=== PATIENT | female | born 1990 | race Caucasian/White ===

== ENCOUNTER 2017-03-25 10:24 | Emergency (ER) | payer OTHER ==
[~2017-03-25] VITALS: Ht 157.5 cm; Wt 53.5 kg
[2017-03-25 10:27] VITALS: BP 120/73; PULSE 74; RESP 12; TEMP 98.5; O2SAT 100
--- NOTE | 2017-03-25 10:51 | PD ---
HPI Chief Complaint: Flank/Kidney Pain Time Seen by Provider: 10:34 Travel History International Travel<30 days: No Contact w/Intl Traveler<30days: No Traveled to known affect area: No History of Present Illness HPI 26-year-old female complains of left flank pain overnight. Radiates to the left groin. Initially it was a dull mild pain it became much more severe. Outside facility revealed no UTI and she was referred here. No fever or vomiting. She denies hematuria. Severity moderate. PFSH Past Medical History Medical History: Denies Significant Hx Diminished Hearing: No Tetanus Vaccination: Unknown Influenza Vaccination: No ?: Not LMP: 03/17/17 Past Surgical History Surgical History: No Previous Surgery Social History Alcohol Use: No Tobacco Use: No Substance Use: No Allergies-Medications (Allergen,Severity, Reaction): Coded Allergies: No Known Allergies (Verified Allergy, Unknown, 03/25/17) Reported Meds & Prescriptions Reported Meds & Active Scripts Active No Active Prescriptions or Reported Medications Review of Systems Except as stated in HPI: all other systems reviewed are Neg Physical Exam Narrative GENERAL: 26-year-old female pleasant well-nourished well-developed Vital Signs Date Time Temp Pulse Resp B/P (MAP) Pulse Ox O2 Delivery O2 Flow Rate FiO2 03/25/17 10:27 98.5 74 12 120/73 (89) 100 SKIN: Warm and dry. HEAD: Atraumatic. Normocephalic. EYES: Pupils equal and round. No scleral icterus. No injection or drainage. ENT: No nasal bleeding or discharge. Mucous membranes pink and moist. NECK: Trachea midline. No JVD. CARDIOVASCULAR: Regular rate and rhythm. RESPIRATORY: No accessory muscle use. Clear to auscultation. Breath sounds equal bilaterally. GASTROINTESTINAL: Minimal tenderness to percussion along the left flank. Abdomen soft and nontender. MUSCULOSKELETAL: Extremities without clubbing, cyanosis, or edema. No obvious deformities. NEUROLOGICAL: Awake and alert. No obvious cranial nerve deficits. Motor grossly within normal limits. Five out of 5 muscle strength in the arms and legs. Normal speech. PSYCHIATRIC: Appropriate mood and affect; insight and judgment normal. Data Data Last Documented VS Vital Signs Date Time Temp Pulse Resp B/P (MAP) Pulse Ox O2 Delivery O2 Flow Rate FiO2 03/25/17 10:27 98.5 74 12 120/73 (89) 100 Orders Orders Basic Metabolic Panel (Bmp) (03/25/17 10:47) Complete Blood Count With Diff (03/25/17 10:47) Urinalysis - C+S If Indicated (03/25/17 10:47) Ct Abd/Pel W/O Iv Contrast (03/25/17 10:47) Iv Access Insert/Monitor (03/25/17 10:47) Ecg Monitoring (03/25/17 10:47) Oximetry (03/25/17 10:47) Sodium Chloride 0.9% Flush (Ns Flush) (03/25/17 11:00) Ketorolac Inj (Toradol Inj) (03/25/17 11:00) Ed Urine Pregnancytest Poc (03/25/17 10:47) Labs Laboratory Tests Test 03/25/17 10:55 03/25/17 11:00 White Blood Count 7.2 TH/MM3 Red Blood Count 5.06 MIL/MM3 Hemoglobin 12.9 GM/DL Hematocrit 40.5 % Mean Corpuscular Volume 80.2 FL Mean Corpuscular Hemoglobin 25.6 PG Mean Corpuscular Hemoglobin Concent 31.9 % Red Cell Distribution Width 15.8 % Platelet Count 246 TH/MM3 Mean Platelet Volume 9.2 FL Neutrophils (%) (Auto) 58.8 % Lymphocytes (%) (Auto) 31.0 % Monocytes (%) (Auto) 8.4 % Eosinophils (%) (Auto) 1.1 % Basophils (%) (Auto) 0.7 % Neutrophils # (Auto) 4.3 TH/MM3 Lymphocytes # (Auto) 2.2 TH/MM3 Monocytes # (Auto) 0.6 TH/MM3 Eosinophils # (Auto) 0.1 TH/MM3 Basophils # (Auto) 0.0 TH/MM3 CBC Comment DIFF FINAL Differential Comment Blood Urea Nitrogen 9 MG/DL Creatinine 0.75 MG/DL Random Glucose 85 MG/DL Calcium Level 9.1 MG/DL Sodium Level 138 MEQ/L Potassium Level 4.4 MEQ/L Chloride Level 108 MEQ/L Carbon Dioxide Level 22.0 MEQ/L Anion Gap 8 MEQ/L Estimat Glomerular Filtration Rate 95 ML/MIN MDM Medical Decision Making Medical Screen Exam Complete: Yes Emergency Medical Condition: Yes Medical Record Reviewed: Yes Differential Diagnosis Constipation, Gastritis, Acute Cholecystitis, Biliary Colic, Pancreatitis, FIELD , Hepatitis, Bowel Obstruction, Cystitis, Mesenteric Ischemia, AAA, Appendicitis , Renal Stone/Hydronephrosis, GERD, perforated viscous Narrative Course CBC & BMP Diagram 03/25/17 10:55 Calcium Level 9.1 Urine is negative Urinalysis shows no UTI CT of pelvis shows free fluid in the pelvis with some thickening of the uterus of unknown etiology The patient is resting comfortably and feels better, is alert and in no distress. The patients results and examination findings were discussed. The repeat examination is unremarkable and benign. The history, exam, diagnostic testing, and current condition do not suggest any significant pathology to warrant further testing, continued ED treatment, admission, or surgical evaluation at this point. The vital signs have been stable. The patient does not have uncontrollable pain, intractable vomiting, or other significant symptoms. The patient's condition is stable and appropriate for discharge. The patient will pursue further outpatient evaluation with a primary care physician or other designated or consulting physician as indicated in the discharge instructions. The patient expressed understanding and was agreeable with this plan. Diagnosis Primary Impression: Ruptured ovarian cyst Referrals: Primary Care Physician 2 days Med/Other Pt SpecificInfo: Prescription(s) given Scripts No Active Prescriptions or Reported Meds Disposition: 01 DISCHARGE HOME Condition: Stable Dann Kate MD Mar 25, 2017 10:51
[2017-03-25] MEDS ORDERED: KETOROLAC TROMETHAMINE 30 MG/ML (IVP) VIAL IVP ONE (11:00)
[2017-03-25] MEDS ORDERED: SODIUM CHLORIDE 0.9% FLUSH 10 ML FLUSH IV FLUSH PRN (11:00)
[2017-03-25 11:18] LABS: AUTOMATED NEUTROPHIL # 4.3 TH/MM3 (1.8-7.7); BASOPHIL % 0.7 % (0.0-2.0); EOSINOPHIL # 0.1 TH/MM3 (0-0.4); EOSINOPHIL % 1.1 % (0.0-4.0); HEMATOCRIT 40.5 % (35.0-46.0); HEMOGLOBIN 12.9 GM/DL (11.6-15.3); LYMPHOCYTE # 2.2 TH/MM3 (1.0-4.8); MEAN CELL VOLUME 80.2 FL (80.0-100.0); MEAN CORPUSCULAR HEMOGLOBIN 25.6 PG (27.0-34.0); MEAN CORPUSCULAR HGB CONC 31.9 % (32.0-36.0); MEAN PLATELET VOLUME 9.2 FL (7.0-11.0); MONO % 8.4 % (0.0-8.0); MONOCYTE # 0.6 TH/MM3 (0-0.9); NEUT % 58.8 % (16.0-70.0); PLATELET COUNT 246 TH/MM3 (150-450); RED BLOOD COUNT 5.06 MIL/MM3 (4.00-5.30); RED CELL DISTRIBUTION WIDTH 15.8 % (11.6-17.2); WHITE BLOOD COUNT 7.2 TH/MM3 (4.0-11.0)
--- NOTE | 2017-03-25 11:37 | RADRPT ---
EXAM DATE/TIME: 03/25/2017 11:20 [facility] COMPARISON: No previous studies available for comparison. INDICATIONS : Left flank pain today. ORAL CONTRAST: No oral contrast ingested. RADIATION DOSE: 6.97 CTDIvol (mGy) MEDICAL HISTORY : None SURGICAL HISTORY : None. ENCOUNTER: Initial ACUITY: 1 day PAIN SCALE: 8/10 LOCATION: Left flank TECHNIQUE: Renal colic protocol. Volumetric scanning of the abdomen and pelvis was performed. Using automated exposure control and adjustment of the mA and/or kV according to patient size, radiation dose was kep t as low as reasonably achievable to obtain optimal diagnostic quality images. DICOM format image da ta is available electronically for review and comparison. FINDINGS: Right side: No calcified stones. No evidence of hydronephrosis. No calcifications along the course of the right ureter. Left side: No evidence hydronephrosis. No calcifications in the collecting system or along the course of the le ft ureter. Bladder: Nondistended. No calcifications within the lumen. Other: Retroverted uterus. A few calcified phleboliths seen on the right side. Moderate amount of free flu id in the dependent pelvis measuring up to 1.2 cm. No dilated loops of small and large bowel. No ca lcified gallstones. CONCLUSION: 1. No calcified renal stones or hydronephrosis. 2. Moderate amount of free fluid in the cul-de-sac. Retroverted uterus. Sarabjit Andre MD on March 25, 2017 at 11:32 Board Certified Radiologist. This report was verified electronically.
[2017-03-25 11:40] LABS: CALCIUM 9.1 MG/DL (8.5-10.1); CREATININE 0.75 MG/DL (0.50-1.00)
[2017-03-25 11:47] LABS: BACTERIA, URINE RARE /hpf; BILIRUBIN, URINE NEG (NEG); BLOOD, URINE NEG (NEG); GLUCOSE,URINE NEG (NEG); KETONE, URINE NEG (NEG); MUCUS URINE FEW /lpf (OCC); NITRITE,URINE NEG (NEG); SQUAMOUS EPITHELIAL CELL URINE 1 /hpf (0-5); TRANSITIONAL EPI CELLS, URINE <1 /hpf; URINE COLOR YELLOW (YELLW/STRAW); URINE LEUKOCYTE ESTERASE NEG (NEG)
[2017-03-25 11:51] VITALS: BP 110/61
== END 2017-03-25 11:59 | disposition home or self-care (01) ==
LOC: NEPC 10:24
DX: N83.209 Unspecified ovarian cyst, unspecified side (principal)
CPT/HCPCS: 74176; 80048; 81001; 84703; 85025; 96374; 99284; J1885

== ENCOUNTER 2017-12-12 17:01 | Inpatient (IN) ==
[2017-12-12] MEDS ORDERED: Naloxone Inj 0.4 MG/ML Vial IV.PUSH PRN (18:22)
[2017-12-12] MEDS ORDERED: fentaNYL Citrate Inj 100 MCG/2 ML Ampul IV.PUSH PRN (18:22)
[2017-12-12] MEDS ORDERED: Sodium Chlor 0.9% Inj 500 ML IV.SIG PRN (18:22)
[2017-12-12] MEDS ORDERED: Oxytocin 30 Units/500ml Premix 30 UNITS/500 ML BAG IV.SIG ONE (18:22)
[2017-12-12] MEDS ORDERED: Sod Chloride 0.9% Inj 1,000 ML IV.CONT PRN (18:22)
[2017-12-12] MEDS ORDERED: Citric Acid/Sodium Citrate Liq 30 ML UDC PO SCH (18:30)
[2017-12-12 18:48] LABS: Baso % (Auto) 0.4 % (0.0-2.0); Eos % (Auto) 0.1 % (0.0-4.0); Hematocrit 31.8 % (35.0-46.0); Hemoglobin 9.9 gm/dL (11.6-15.3); Lymph # (Auto) 1.6 th/mm3 (1.0-4.8); Lymph % (Auto) 15.2 % (9.0-44.0); Mean Corpuscular Hemoglobin 22.7 pg (27.0-34.0); Mean Corpuscular Volume 73.3 fL (80.0-100.0); Mean Platelet Volume 10.8 fL (7.0-11.0); Mono # (Auto) 0.7 th/mm3 (0.0-0.9); Mono % (Auto) 6.4 % (0.0-8.0); Neut % (Auto) 77.9 % (16.0-70.0); Platelet Count 171 th/mm3 (150-450); Red Blood Count 4.34 mil/mm3 (4.00-5.30); Red Cell Distribution Width 21.8 % (11.6-17.2); White Blood Count 10.3 th/mm3 (4.0-11.0)
[2017-12-12 18:50] LABS: Bacteria,Urine Few /hpf; Bilirubin,Urine Negative (Negative); Clarity,Urine Clear (Clear); Color,Urine Straw (Yellw/Straw); Glucose,Urine (UA) Negative (Negative); Leukocyte Esterase,Urine Negative (Negative); Mucus,Urine Few /lpf (Occasional); Nitrite,Urine Negative (Negative); Specific Gravity,Urine 1.003 (1.002-1.035); Squamous Epithelial Cell,Urine 2 /hpf (0-5)
[2017-12-12 18:56] LABS: Amphetamine Urine With Conf Neg (Neg); Benzodiazepine Urine With Conf Neg (Neg)
[2017-12-12] MEDS ORDERED: Penicillin G Potassium Inj 5,000,000 UNIT in Sodium Chloride 0.9% Inj 100 ML IV.SIG ONE (20:00)
[2017-12-12] MEDS ORDERED: Zolpidem Tartrate 5 MG Tablet PO PRN (21:00)
[2017-12-12] MEDS: fentaNYL Citrate Inj 100 MCG/2 ML Ampul IV.PUSH PRN (23:25)
[2017-12-12] MEDS ORDERED: fentaNYL 2MCG-Bupiv 0.125% Epi 150 ML EPIDURAL ONE (23:54)
[2017-12-13] MEDS: fentaNYL Citrate Inj 100 MCG/2 ML Ampul IV.PUSH PRN (00:05)
[2017-12-13] MEDS ORDERED: Bupivacaine PF 0.25% Inj 10 ML Vial ONE (00:30)
[2017-12-13] MEDS ORDERED: Lidocaine PF 1% Inj 5 ML Vial ONE (00:30)
[2017-12-13] MEDS ORDERED: Lidocaaine 1.5%/Epinephrine 1:200,000 PF Inj 5 ML Amp ONE (00:30)
[2017-12-13] MEDS ORDERED: fentaNYL 2MCG-Bupiv 0.125% Epi 150 ML EPIDURAL PRN (01:03)
[2017-12-13] MEDS ORDERED: fentaNYL Citrate Inj 100 MCG/2 ML Ampul EPIDURAL ONE (01:03)
[2017-12-13] MEDS ORDERED: Lidocaine 1% Inj 50 ML Vial ONE (01:44)
[2017-12-13] MEDS: Penicillin G Potassium Inj 2,500,000 UNIT in Sodium Chlor 0.9% Inj 100 ML IV.SIG SCH ×6 (02:30→23:37)
[2017-12-13] MEDS ORDERED: Oxytocin 30 Units/500ml Premix 30 UNITS/500 ML BAG IV.CONT PRN (06:30)
--- NOTE | 2017-12-13 07:34 | MH ---
cc: Naveen Jane MD DATE OF ADMISSION: 12/12/2017 ADMITTING DIAGNOSIS: Term , polyhydramnios. HISTORY OF PRESENT ILLNESS: This is a 27-year-old white female, para 0, LMP of 03/10/2017, EDC of 12/15/2017. Her course has been benign. At term, ultrasound showed increased fluid. She is admitted for delivery. PAST SURGICAL HISTORY: None. MEDICATIONS: Vitamins. ALLERGIES: MORPHINE. TRANSFUSIONS: None. PAST MEDICAL HISTORY: Migraines. SOCIAL HISTORY: She is . 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 Alcohol, tobacco and drugs are none. PHYSICAL EXAMINATION: GENERAL: Gravid white female. VITAL SIGNS: Stable. HEENT: Normal. CHEST: Clear. HEART: Regular rate. BREASTS: Symmetrical. ABDOMEN: Gravid. EFW of 3300 grams. PELVIC: Cervix is closed. EXTREMITIES: Normal. LABORATORY DATA: GBS is positive. ASSESSMENT: As above. She is admitted for induction of labor. Should she have failure to progress or distress would need a delivery. MD PAULINE Olmos/shannon , 02:34 AM , 02:39 AM
[2017-12-13] MEDS ORDERED: Oxytocin 30 Units/500ml Premix 30 UNITS/500 ML BAG IV.SIG ONE (08:40)
[2017-12-13] MEDS ORDERED: fentaNYL Citrate Inj 250 MCG/5 ML Ampul ONE (09:11)
[2017-12-13] MEDS ORDERED: Citric Acid/Sodium Citrate Liq 30 ML UDC PO SCH (09:15)
[2017-12-13 09:35] LABS: Cord Arterial Blood HCO3 23.9
[2017-12-13] MEDS ORDERED: Ropivacaine 0.5% PF Inj 20 ML Vial ONE (09:42)
[2017-12-13] MEDS: Ketorolac Inj 30 MG/ML (IVP) Vial IV.PUSH SCH ×3 (11:22→23:16)
[2017-12-13] MEDS ORDERED: Oxytocin 30 Units/500ml Premix 30 UNITS/500 ML BAG ONE (11:37)
[2017-12-13] MEDS ORDERED: Naloxone Inj 0.4 MG/ML Vial IV.PUSH PRN (12:40)
[2017-12-13] MEDS ORDERED: Oxytocin 30 Units/500ml Premix 30 UNITS/500 ML BAG IV.SIG PRN (13:40)
--- NOTE | 2017-12-13 19:53 | MP ---
cc: Naveen Jane MD DATE OF OPERATION: 12/13/2017 PREOPERATIVE DIAGNOSES: 1. Term . 2. Failure to progress. 3. Failure to descend secondary to occiput posterior. POSTOPERATIVE DIAGNOSES: 1. Term . 2. Failure to progress. 3. Failure to descend secondary to occiput posterior. 4. Delivery. PROCEDURE PERFORMED: Primary low transverse section. ANESTHESIA: Epidural and general. SURGEON: Naveen Jane MD ESTIMATED BLOOD LOSS: 600 mL. FLUIDS: 2 liters of crystalloid. OBJECTIVE FINDINGS: Following induction of epidural anesthesia, the patient was prepped and draped in usual sterile fashion with the heels opposed to allow access to the vagina during the surgery. The epidural did not provide adequate relief, so she received general endotracheal anesthesia. The abdomen was then opened through a Pfannenstiel incision using a knife to cut down through the skin to the fascia. The fascia was opened transversely and stripped from the muscles. The rectus muscle was split in the midline and the peritoneum opened sharply without incident. The lower segment was ballooned out. The bladder flap was taken down sharply. Lower segment incised transversely and extended with blunt dissection. Clear fluid. The baby was in the direct OP position. With the sales assistant institutional sales nurse lifting from below and my hand internally, we were able to elevate the head, rotate it, delivered it, suction the mouth and deliver the baby. A viable vigorous male, Apgars 8 and 8, weight 7 pounds 3 ounces. Cord blood for typing and for ABG. The placenta was manually removed and the uterine cavity cleaned with laps. The uterus was exteriorized and closed in 2 layers with running suture, first with a running locking stitch of 0 Vicryl, second with running imbricating stitch of 0 Vicryl. On posterior inspection, uterus and tubes were normal. The uterus was placed in the cavity. Irrigation performed. No bleeding was evident and the bladder flap was closed with a running stitch of 3-0 Vicryl. All laps and retractors were removed. Counts were correct. The anterior peritoneum was closed with running stitch of 2-0 Vicryl, the fascia closed with a running locking stitch of 0 Vicryl corner to midline and tied, subcutaneous with 3-0 Vicryl and the skin with a running subcuticular 3-0 Monocryl. Dermabond applied. All counts were correct. The patient was awakened and taken to the recovery room in good condition. MD PAULINE Olmos/isael , 07:20 PM , 07:27 PM
[2017-12-14] MEDS: Ketorolac Inj 30 MG/ML (IVP) Vial IV.PUSH SCH ×3 (05:01→17:00)
[2017-12-14 05:59] LABS: Baso % (Auto) 0.3 % (0.0-2.0); Eos % (Auto) 0.2 % (0.0-4.0); Lymph # (Auto) 1.8 th/mm3 (1.0-4.8); Lymph % (Auto) 14.5 % (9.0-44.0); Mean Corpuscular HGB Conc 31.3 % (32.0-36.0); Mean Corpuscular Volume 73.5 fL (80.0-100.0); Mean Platelet Volume 10.6 fL (7.0-11.0); Mono # (Auto) 0.7 th/mm3 (0.0-0.9); Mono % (Auto) 5.6 % (0.0-8.0); Neut # (Auto) 9.7 th/mm3 (1.8-7.7); Neut % (Auto) 79.4 % (16.0-70.0); Platelet Count 105 th/mm3 (150-450); Red Cell Distribution Width 21.1 % (11.6-17.2); White Blood Count 12.2 th/mm3 (4.0-11.0)
[2017-12-14 06:06] LABS: Hematocrit 20.6 % (35.0-46.0); Hemoglobin 6.4 gm/dL (11.6-15.3)
[2017-12-14] MEDS: Simethicone 80 MG Chew Tablet PO PRN (12:38)
[2017-12-14] MEDS: Senna/Docusate Sodium 8.6/50 MG Tablet PO PRN (12:44)
[2017-12-14 14:25] LABS: Hematocrit 21.2 % (35.0-46.0); Hemoglobin 6.8 gm/dL (11.6-15.3)
[2017-12-14] MEDS ORDERED: Measles/Mumps/Rubella Vaccine Inj 0.5 ML Vial SQ ONE (16:00)
[2017-12-14] MEDS ORDERED: Diphtheria/Tetanus/Pertussis Vaccine Inj 0.5 ML Syringe IM ONE (16:00)
[2017-12-14] MEDS: Ibuprofen 600 MG Tablet PO PRN (18:20)
[2017-12-15] MEDS: Simethicone 80 MG Chew Tablet PO PRN (00:15)
[2017-12-15] MEDS: Ibuprofen 600 MG Tablet PO PRN ×2 (00:15→08:18)
[2017-12-15] MEDS: Senna/Docusate Sodium 8.6/50 MG Tablet PO PRN (00:16)
[2017-12-15 05:24] LABS: Hemoglobin 6.2 gm/dL (11.6-15.3)
[2017-12-15 05:25] LABS: Hematocrit 19.7 % (35.0-46.0)
[2017-12-15 10:52] VITALS: BP 121/73
[2017-12-15 10:53] VITALS: PULSE 62; RESP 16; TEMP 98.9
--- NOTE | 2017-12-15 11:21 | MD ---
cc: Naveen Jane MD DATE OF DISCHARGE: 12/15/2017 ADMITTING DIAGNOSIS: Term with polyhydramnios. DISCHARGE DIAGNOSIS: Term with polyhydramnios with failure to progress, failure to descend, occiput posterior, delivered. HISTORY OF PRESENT ILLNESS: A 27-year-old white female, para 0, with an EDC of 12/15/2017 had polyhydramnios diagnosed in the week prior to delivery. Her course was benign. HOSPITAL COURSE: She was admitted for an induction per her desire for delivery and increased fluid. She received Cervidil on the evening of 12/12/2017, made rapid progress and received epidural anesthesia on the morning of 12/13/2017. She progressed to complete, OP position and began pushing. The baby failed to descend despite the mom's efforts of pushing for 2.5 hours. She then agreed to delivery, had a low transverse section, delivery of a viable vigorous male and did well postop, except for anemia and hemoglobin was 9 plus, Discharge was stable 6.2 asymptomatic. She was bottle feeding. DISCHARGE INSTRUCTIONS: She was advised NPV, light activity, no driving, return to see me in 1 week. She is to call for abnormal pain, bleeding, temperature, signs of infection or depression. She is to take her vitamins and iron pills daily. She was given a prescription for Percocet 5 one p.o. every 4 hours p.r.n. #30, was carefully instructed in circumcision care. Naveen Jane MD JAW/ct , 10:45 AM , 10:51 AM
== END 2017-12-15 12:21 | disposition home or self-care (01) ==
LOC: H2E 17:01 → H1EA 12-13 11:53
PROVIDERS: ADMIT Obstetrics & Gynecology; ATTEND Obstetrics & Gynecology